=== PATIENT | male | born 1980 | race American Indian/Alaskan Native ===

== ENCOUNTER 2019-01-07 17:17 | Emergency (ER) | payer MEDICAID, OTHER ==
[2019-01-07 17:23] VITALS: BP 150/101; PULSE 100; RESP 19; TEMP 98.7; O2SAT 99
--- NOTE | 2019-01-07 17:40 | C.PDOC ---
History Of Present Illness The patient reports that a heavy box fell onto the right foot 1 hour [employer] while at work. The patient reports that he is not able to bear weight and pain is worsened with walking. Denies numbness, weakness, or other injuries. Time Seen by Provider: 01/07/19 17:28 Chief Complaint (Nursing): Lower Extremity Problem/Injury History Per: Patient History/Exam Limitations: no limitations Onset/Duration Of Symptoms: Hrs (1) Current Symptoms Are (Timing): Still Present - Ankle/Foot Description Of Injury: Struck With Object Past Medical History Reviewed: Historical Data, Nursing Documentation, Vital Signs Vital Signs: Last Vital Signs Temp 98.7 F 01/07/19 17:19 Pulse 100 H 01/07/19 17:19 Resp 19 01/07/19 17:19 BP 150/101 H 01/07/19 17:19 Pulse Ox 99 01/07/19 17:19 Primary Care Provider: FAMILY PROVIDER,NO - Medical History PMH: Multiple Sclerosis Surgical History: No Surg Hx Family History: States: Unknown Family Hx - Social History Hx Alcohol Use: Yes Hx Substance Use: No - Immunization History Hx Tetanus Toxoid Vaccination: No Hx Influenza Vaccination: No Hx Pneumococcal Vaccination: No Review Of Systems Constitutional: Negative for: Fever, Chills, Weakness Musculoskeletal: Positive for: Foot Pain (right foot) Skin: Negative for: Rash, Bruising Neurological: Negative for: Weakness, Numbness Physical Exam - Physical Exam Appears: Well, Non-toxic, No Acute Distress Skin: Normal Color, Warm, Dry Head: Atraumatic, Normacephalic Neck: Normal ROM, Supple Chest: Symmetrical, No Deformity Cardiovascular: Rhythm Regular, No Murmur Respiratory: No Accessory Muscle Use Extremity: Normal ROM (FROM of the ankle and toes), Tenderness (mild tenderness to the dorsal aspect of the right 1st metatarsel), Capillary Refill (<2 seconds), No Deformity, Swelling (dorsal aspect of the right 1st metatarsel) Pulses: Left Dorsalis Pedis: Normal, Right Dorsalis Pedis: Normal Neurological/Psych: Oriented x3, Normal Speech, Normal Cognition, Normal Motor, Normal Sensation Gait: Steady ED Course And Treatment O2 Sat by Pulse Oximetry: 99 (in RA) Pulse Ox Interpretation: Normal - Other Rad right foot x-ray X-Ray: Interpreted by Me (negative) Medical Decision Making Medical Decision Making: Initial Plan: Tylenol PO Right foot x-ray X-ray- negative Sandeep wrap applied to the right foot and crutches given to patient. Disposition - Disposition Referrals: [facility] [Outside] Sandra Nolasco DPM [Staff Provider] - Disposition: HOME/ ROUTINE Disposition Time: 19:40 Condition: STABLE Additional Instructions: Follow up with Podiatry within 1-2 days without fail. return if worsened. Prescriptions: Acetaminophen [Tylenol] 325 mg PO Q6 PRN #30 tab PRN Reason: pain traMADol [Ultram] 50 mg PO Q6 PRN #20 tab PRN Reason: Pain Instructions: Contusion (DC) Forms: [employer] (E[place]ian), Work Excuse - Clinical Impression Clinical Impression: Foot contusion - PA / APPLICATION PACKAGER / Resident Statement MD/DO has reviewed & agrees with the documentation as recorded. (Amena Henderson) - Scribe Statement The provider has reviewed the documentation as recorded by the Scribe (Amena Henderson) All medical record entries made by the Scribe were at my direction and personally dictated by me. I have reviewed the chart and agree that the record accurately reflects my personal performance of the history, physical exam, medical decision making, and the department course for this patient. I have also personally directed, reviewed, and agree with the discharge instructions and disposition.
--- NOTE | 2019-01-08 07:59 | RAD ---
Date of service: 01/07/2019 PROCEDURE: Right Foot Radiographs. HISTORY: injury, pain to 1st metatarsal COMPARISON: None. TECHNIQUE: 3 views obtained. FINDINGS: BONES: No fracture appreciated. Tibial fibular osseous fusion noted. Lateral view limited particular in regards to the ankle-study tailored to right foot. 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 IMPRESSION: No acute fracture or dislocation. 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
== END 2019-01-07 19:49 | disposition home or self-care (01) ==
LOC: C.ER 17:17
DX: S90.31XA Contusion of right foot, initial encounter (principal); W22.8XXA Striking against or struck by other objects, initial encounter; Y92.89 Other specified places as the place of occurrence of the external cause; Y99.0 Civilian activity done for income or pay